=== PATIENT | male | born 1975 | race Caucasian/White ===

== ENCOUNTER 2022-10-02 17:35 | Emergency (ER) | payer OTHER, BC, SELFPAY ==
[2022-10-02 17:40] VITALS: BP 159/96; PULSE 94; RESP 18; TEMP 36.5; O2SAT 94; BMI 41.2
--- NOTE | 2022-10-02 17:56 | ED.HEATRA ---
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 She kicked her front legs, striking him on the very top of the head. He dropped the feed buckets, much to her delight. He noted immediate pain bleeding, no loss of consciousness. He came in to tell his . They monitored at home and noted persistent bleeding so they present to the ED for evaluation. He is not noting any neurological changes, no vision changes, no numbness or tingling. There has been no vomiting. He has no history of seizure disorder. He does not take any anticoagulants. He does note mild headache, He has not taken any medicine for the headache. No fevers or recent illness. No history of severe concussions or head injuries in the past. No other injuries noted. Past medical history benign, no major long-term health problems. No recent surgeries. No prescriptions, no allergies. Socially denies any intoxication or tobacco use. No pertinent travel. ROS is negative for other generalized, HEENT, musculoskeletal, neurological, skin concerns. Related Data Home Medications Medication Instructions Recorded Confirmed No Known Home Medications 10/02/22 10/02/22 Allergies Allergy/AdvReac Type Severity Reaction Status Date / Time No Known Drug Allergies Allergy Verified 10/02/22 17:43 [facility] Social History Smoking Status: Former smoker Do you use any of these nicotine containing products: None Second hand tobacco smoke exposure: No How often do you have a drink containing alcohol: 4 or more times a week How many standard drinks containing alcohol do you have on a typical day: 3 or 4 How often do you have six or more drinks on one occasion: Never AUDIT-C Alcohol total score: 5 Non-prescribed substance use: denies use Exam Const: Vital Signs, click to edit/add: Vital Signs - 24 hr 10/02/22 17:40 Temperature 97.7 F Pulse Rate [Pulse Oximeter] 94 Respiratory Rate 18 Blood Pressure [Le ft Upper Arm] 159/96 H Pulse Oximetry 94 Oxygen Delivery Me thod Room Air Documenting provider has reviewed patient's vital signs: yes Common normals: no apparent distress and oriented x3 General appearance: cooperative and well kempt HENMT: Common normals: TM's normal bilaterally Face and sinus: normal facial exam Tympanic membrane: TM's normal bilaterally Mouth: oral and palatal mucosa normal Throat: posterior oropharynx normal Other: Very top of the scalp has a 4 cm linear laceration along the midline, depth is to the dermis with some slight oozing of blood. No foreign body appreciated. Minimal gape noted. No other associated areas of injury. Normal dentition, no tongue biting. Eye: Common normals: PERRL, EOMs intact bilaterally, conjunctivae normal and no scleral icterus Conjunctiva: conjunctiva(e) normal Pupil: PERRL Neck & C-Spine: Common normals: full ROM, no lymphadenopathy and supple Resp: Common normals: normal respiratory effort, no use of accessory muscles and clear to auscultation bilaterally Effort & inspection: able to speak in complete sentences Auscultation: clear to auscultation bilaterally Cardio: Common normals: regular rate, regular rhythm, S1 normal heart sound, S2 normal heart sound, no murmurs and peripheral pulses 2+ throughout Rate: regular rate Rhythm: regular rhythm Heart sounds: S1 normal and S2 normal Peripheral pulses: pulses 2+ throughout Extremity: Common normals: no pedal edema Neuro: Whit[place] Coma Scale: document GCS findings Uzma coma scale eye opening: Spontaneous (4) [place]estone coma scale verbal response: Orientated (5) Uzma coma scale motor response: Obey commands (6) Uzma coma scale total score: 15 Common normals: oriented x3, CN's II-XII intact bilaterally, moves all extremities, no focal motor deficits and no sensory deficits noted Speech: speech normal Motor exam: strength 5/5 throughout, no tremor noted and no movement abnormalities noted Psych: Common normals: speech normal Appearance: well kempt Attitude: engaged Activity/motor behavior: appropriate eye contact Speech: normal speech Mood and affect: euthymic mood Insight: insight good Judgement: judgment good Skin: Narrative: The linear laceration on the top of the scalp, no other areas of injury appreciated Course Vital Signs Vital signs: Initial Vital Signs Temperature 97.7 F 10/02/22 17:40 Temperature Source Temporal Artery Scan 10/02/22 17:40 Pulse Rate 94 10/02/22 17:40 Respiratory Rate 18 10/02/22 17:40 Blood Pressure 159/96 H 10/02/22 17:40 Blood Pressure Mean 117 10/02/22 17:40 Blood Pressure Position Sitting 10/02/22 17:40 Pulse Oximetry 94 10/02/22 17:40 Oxygen Delivery Method 10/02/22 17:40 Vital Signs Temperature 97.7 F 10/02/22 17:40 Pulse Rate 94 10/02/22 17:40 Respiratory Rate 18 10/02/22 17:40 Blood Pressure 159/96 H 10/02/22 17:40 Pulse Oximetry 94 10/02/22 17:40 Oxygen Delivery Method 10/02/22 17:40 Temperature 97.7 F 10/02/22 17:40 Pulse Rate 94 10/02/22 17:40 Respiratory Rate 18 10/02/22 17:40 Blood Pressure 159/96 H 10/02/22 17:40 Pulse Oximetry 94 10/02/22 17:40 Oxygen Delivery Method 10/02/22 17:40 MDM - Head Injury MDM Narrative Medical decision making narrative: Discussed scalp laceration, here is just long enough for hair apposition technique glue, will scrub lesion with chlorhexidine soap, hair apposition technique closure. Discussed signs and symptoms of head injury, he is likely to have symptoms of some mild concussion. I do not appreciate any neurological changes that would warrant doing a head CT, the mechanism of injury is of medium to low risk. Discussed this with family and they are comfortable with conservative management on this as well. Ibuprofen will be given x1 for headache. Tdap confirmed up-to-date through [facility].02/06 Procedure wound closure: Discussed different options, recommend hair apposition in Dermabond closure, he was agreeable to this. Area was cleansed with wound cleanser and scrubbed with no evidence foreign body. Three separate knots with Dermabond glue were used to close the length of the laceration with good closure, well tolerated. Wound hemostatic. Wound care discussed. Continues to deny any neurological changes, do not recommend further workup. Signs and symptoms of concussion were reviewed with patient and family Differential Diagnosis Differential diagnosis: Likely concussion without loss of consciousness, closed head injury, subarachnoid hematoma and subdural hematoma Discharge Plan Discharge Clinical Impression: Closed head injury, Laceration of scalp Patient Disposition: Home w/ Parent or Adult Condition: Improved Additional Instructions: The cut on your head was closed with a combination of twisting of your own hair and medical grade glue. Please avoid washing your hair for the next 30 hours. Be gentle with brushing for the next week. A morning, you may wash her hair is usual, being careful not to scrub hard over the cut area on the top of her head. It can be normal to still have some watery, or red tinged discharge with this, I would not expect heavy active bleeding. It is okay to wear a hat. You will likely have some symptoms of mild concussion. This would include dizziness, headache, sensitivity to light, irritability, fatigue and nausea. This will usually last 2-3 days, I would recommend that you take it kind easy for a couple of days. It is okay to take Tylenol and/or ibuprofen rest and sleep as needed. Try to avoid any further head injury for the next couple of weeks. Your tetanus shot is up-to-date, just given last January. After 1 week, you may gently comb through the area of glue if you wish to clean this. It will take a couple of weeks to heal completely, but should be close to the outside air after 3 days. You do not need to apply any specific treatments, salves or ointments to the cut. Activity Level: Activity as Tolerated Discharge Diet: Regular Prescriptions: No Action No Known Home Medications Follow Up/Referrals: Antonio Kimball MD [Primary Care Provider] - Stand Alone Forms: [employer] Info Instructions
== END 2022-10-02 18:45 | disposition home or self-care (01) ==
LOC: ED 18:45
PROVIDERS: Emergency Provider Family Medicine; PCP Family Medicine
DX: S01.01XA Laceration without foreign body of scalp, initial encounter (principal); W55.32XA Struck by other hoof stock, initial encounter
CPT/HCPCS: 12002; 99282; 99283